=== PATIENT | male | born 1990 ===

== ENCOUNTER 2021-07-30 19:59 | Emergency (ER) | payer OTHER ==
[~2021-07-30] VITALS: Ht 180.3 cm; Wt 77.1 kg
== END 2021-07-30 20:43 | disposition home or self-care (01) ==
LOC: ER 19:59
DX: S81.011A Laceration without foreign body, right knee, initial encounter (principal); Z23 Encounter for immunization; W29.3XXA Contact with powered garden and outdoor hand tools and machinery, initial encounter
CPT/HCPCS: 12001; 90471; 90714; 99282-25